=== PATIENT | male | born 1960 | race American Indian/Alaskan Native ===

== ENCOUNTER 2021-06-11 13:39 | Emergency (ER) | payer BC ==
--- NOTE | 2021-06-11 15:29 | RAD REPORT ---
EXAM DESCRIPTION: CT - Stone Protocol - 06/11/2021 3:21 pm CLINICAL HISTORY: Flank pain. back and testicular pain COMPARISON: No comparisons TECHNIQUE: Axial images were obtained without oral or IV contrast. Lack of contrast limits solid org an and vascular assessment. The [id number] spans the entirety of the system partially obscuring uppermost abdomen and lung bases. Coronal reformatted images were obtained and reviewed. All CT scans are performed using dose optimization technique as appropriate and may include automated exposure control or mA/KV adjustment according to patient size. FINDINGS: The lower lung evangelista are clear. Imaged portions of the liver and spleen show no suspicious findings on non-contrast imaging. The panc reas and adrenal glands are normal. No pathologic lymphadenopathy in the abdomen or pelvis. No urinary tract stones or obstructive uropathy. No bowel obstruction, free air, intra-abdominal free fluid or abscess. Normal appendix noted. Small b ilateral fat containing inguinal hernias. Significant edematous appearance to the prostate gland is present with mild inflammation surrounding the prostate. No significant bony abnormality. IMPRESSION: Prostatitis is suspected.
[2021-06-11 15:48] LABS: Urine Blood 3+ (Negative); Urine Glucose Negative (Negative); Urine Protein 3+ (Negative); Urine Specific Gravity >=1.030 (1.005-1.030)
--- NOTE | 2021-06-11 15:56 | RAD REPORT ---
EXAM DESCRIPTION: US - Scrotum Testicles - 06/11/2021 3:20 pm CLINICAL HISTORY: right testicular pain and swelling Pain and swelling COMPARISON: No comparisons FINDINGS: The right testicle 3.9 x 2.3 x 2.4 cm. No intratesticular masses or evidence of testicular torsion. The left testicle 4.5 x 3.0 x 2.2 cm. No intratesticular masses or evidence of testicular torsion. The right epididymis is enlarged and demonstrates increased blood flow. Mild fluid is present in both scrotal sacs. The scrotal in tears soft tissues are thickened. IMPRESSION: Significant right-sided epididymitis suspected.
[2021-06-11 16:12] LABS: Hematocrit 33.7 % (39.6-49.0); RBC Red Blood Cell Count 3.92 M/uL (4.33-5.43)
[2021-06-11 16:13] LABS: Absolute Lymphocytes (CBC) 0.8 K/uL (0.7-4.9); Basophils % 0.1 % (0-1.3); Lymphocytes % 4.9 % (15.3-44.8); MPV 7.2 fL (7.6-11.3)
[2021-06-11] MEDS ORDERED: CEFTRIAXONE 1000 MG/VIAL ONE (16:13)
[2021-06-11 16:30] LABS: Urine Bacteria 20-50 /HPF (NONE SEEN); Urine Mucus 4+ /HPF (NONE SEEN); Urine RBC 20-50 /HPF (NONE SEEN); Urine Sperm PRESENT (NONE SEEN)
[2021-06-11 16:43] LABS: Potassium 3.9 mmol/L (3.5-5.1)
--- NOTE | 2021-06-11 16:50 | ER ---
Nurse's Notes [facility] Name: Kathleen Benites Age: 61 yrs Sex: Male : 1960 Arrival Date: 06/11/2021 Time: 13:48 Bed 11 [facility] MD: Diagnosis: Epididymitis;Acute prostatitis Presentation: 06/11 14:07 Chief complaint: Patient states: Dysuria, R groin pain that radiates into R testes for ll1 2 days. N/V started today. Coronavirus screen: Vaccine status: Patient reports being unvaccinated. Client denies travel out of the [place] in the last 14 days. At this time, the client does not indicate any symptoms associated with coronavirus-19. Ebola Screen: Patient denies travel to an Ebola-affected area in the 21 days before illness onset. Initial Sepsis Screen: Does the patient meet any 2 criteria? No. Patient's initial sepsis screen is negative. Does the patient have a suspected source of infection? Yes: Dysuria/Frequency/Urgency/UTI. Risk Assessment: Do you want to hurt yourself or someone else? Patient reports no desire to harm self or others. Onset of symptoms was June 10, 2021. 14:07 Method Of Arrival: Ambulatory ll1 14:07 Acuity: DEINSA 3 ll1 Historical: - Allergies: 14:08 No Known Allergies; ll1 - PMHx: 14:08 None; ll1 - PSHx: 14:08 lasik eye SX; ll1 - Immunization history:: Client reports having NOT received the Covid vaccine. - Social history:: Smoking status: Patient denies any tobacco usage or history of. - Family history:: not pertinent. - Hospitalizations: : No recent hospitalization is reported. Screenin:22 Abuse screen: Denies threats or abuse. Nutritional screening: No deficits noted. vg1 Tuberculosis screening: No symptoms or risk factors identified. Fall Risk No fall in past 12 months (0 pts). No secondary diagnosis (0 pts). IV access (20 points). Ambulatory Aid- None/Bed Rest/Nurse Assist (0 pts). Gait- Normal/Bed Rest/Wheelchair (0 pts) Mental Status- Oriented to own ability (0 pts). Total Sy Fall Scale indicates No Risk (0-24 pts). Assessment: 14:20 General: Appears in no apparent distress. uncomfortable, Behavior is calm, cooperative. vg1 Pain: Complains of pain in lower back and Right testicle Pain currently is 8 out of 10 on a pain scale. Quality of pain is described as tender. Neuro: Level of Consciousness is awake, alert, obeys commands, Oriented to person, place, time, situation. Cardiovascular: Patient's skin is warm and dry. Respiratory: Airway is patent Respiratory effort is even, unlabored. GI: Reports nausea, vomiting. : Reports pain in lower back testicle. EENT: No signs and/or symptoms were reported regarding the EENT system. Derm: Skin is intact, is healthy with good turgor. Musculoskeletal: Circulation, motion, and sensation intact. 16:00 Reassessment: Patient appears in no apparent distress at this time. No changes from vg1 previously documented assessment. Patient and/or family updated on plan of care and expected duration. Pain level reassessed. Patient is alert, oriented x 3, equal unlabored respirations, skin warm/dry/pink. 17:11 Reassessment: Patient appears in no apparent distress at this time. Patient and/or vg1 family updated on plan of care and expected duration. Pain level reassessed. Patient is alert, oriented x 3, equal unlabored respirations, skin warm/dry/pink. Patient states feeling better. Vital Signs: 14:07 BP 135 / 90; Pulse 75; Resp 18; Temp 97.0; Pulse Ox 99% ; Weight 80.29 kg; Height 5 ft. ll1 8 in. (172.72 cm); Pain 8/10; 15:43 BP 136 / 80; Pulse 78; Resp 16; Pulse Ox 100% ; vg1 17:10 BP 127 / 82; Pulse 74; Resp 16; Pulse Ox 100% ; vg1 14:07 Body Mass Index 26.91 (80.29 kg, 172.72 cm) ll1 ED Course: 13:48 Patient arrived in ED. as 14:07 Arm band placed on. ll1 14:08 Triage completed. ll1 14:11 Dom Grider MD is Attending Physician. rn 14:11 Zulma Montelongo, RN is Primary Nurse. vg1 14:22 Patient has correct armband on for positive identification. Placed in gown. Bed in low vg1 position. Call light in reach. 15:20 US Scrotum Testicles In Process Unspecified. EDMS 15:21 CT Stone Protocol In Process Unspecified. EDMS 15:43 Initial lab(s) drawn, by me, sent to lab. Inserted saline lock: 20 gauge in left vg1 antecubital area, using aseptic technique. Blood collected. 16:49 Shawn Weber MD is Referral Physician. rn 17:10 No provider procedures requiring assistance completed. IV discontinued, intact, vg1 bleeding controlled, No redness/swelling at site. Pressure dressing applied. Administered Medications: 15:56 Drug: Rocephin (cefTRIAXone) 1 grams Route: IV; Rate: calculated rate; Site: left vg1 antecubital; 17:11 Follow up: Response: No adverse reaction; IV Status: Completed infusion vg1 17:05 Drug: LevaQUIN (levofloxacin) 750 mg Route: PO; vg1 17:09 Follow up: Response: Medication administered at discharge. vg1 Outcome: 16:50 Discharge ordered by MD. rn 17:10 Discharged to home ambulatory. vg1 17:10 Condition: stable 17:10 Discharge instructions given to patient, Instructed on discharge instructions, follow up and referral plans. medication usage, Demonstrated understanding of instructions, follow-up care, medications, Prescriptions given X 2. 17:11 Patient left the ED. vg1 Addendum: 06/14/2021 08:30 Addendum: Culture Results: Positive urine culture. No further action required. Bacteria s s sensitive to prescribed antibiotic. Signatures: Dispatcher [employer] Marlene Gagnon Roman, MD MD rn Smirch, Shelby, RN RN ss Garcia, Victoria, RN RN vg1 James Tam RN RN ll1
--- NOTE | 2021-06-11 16:50 | EDPHYS ---
Physician Documentation [facility] Name: Kathleen Benites Age: 61 yrs Sex: Male : 1960 Arrival Date: 06/11/2021 Time: 13:48 Bed 11 Private MD: ED Physician Dom Grider HPI: 06/11 15:39 This 61 yrs old Other Male presents to ER via Ambulatory with complaints of Right rn testicle pain. 15:39 The patient presents with scrotal pain, of the right side, with swelling. Onset: The rn symptoms/episode began/occurred 2 day(s) ago. Modifying factors: The symptoms are alleviated by nothing, the symptoms are aggravated by movement, pressure. Associated signs and symptoms: Pertinent positives: abdominal pain, nausea, Pertinent negatives: fever, hematuria. Severity of symptoms: At their worst the symptoms were moderate, in the emergency department the symptoms are unchanged. The patient has not experienced similar symptoms in the past. The patient has not recently seen a physician. Patient reports 2 days of right testicular pain, no trauma or injury. Reports right groin and the right lower abdominal pain that comes and goes. No fever. Reports more comfortable when sitting and laying back. Reports right testicular tenderness.. Historical: - Allergies: 14:08 No Known Allergies; ll1 - PMHx: 14:08 None; ll1 - PSHx: 14:08 lasik eye SX; ll1 - Immunization history:: Client reports having NOT received the Covid vaccine. - Social history:: Smoking status: Patient denies any tobacco usage or history of. - Family history:: not pertinent. - Hospitalizations: : No recent hospitalization is reported. ROS: 15:39 Constitutional: Negative for fever, chills, and weight loss, Eyes: Negative for injury, rn pain, redness, and discharge, Neck: Negative for injury, pain, and swelling, Cardiovascular: Negative for chest pain, palpitations, and edema, Respiratory: Negative for shortness of breath, cough, wheezing, and pleuritic chest pain, Abdomen/GI: Positive for right lower quadrant abdominal pain and pelvic pain Back: Positive for lower back pain : Positive for right testicular pain and swelling MS/Extremity: Negative for injury and deformity, Skin: Negative for injury, rash, and discoloration, Neuro: Negative for headache, weakness, numbness, tingling, and seizure. Exam: 15:39 Constitutional: This is a well developed, well nourished patient who is awake, alert, rn sitting in chair, reclined, appears uncomfortable Head/Face: Normocephalic, atraumatic. Cardiovascular: Regular rate and rhythm. No pulse deficits. Respiratory: No increased work of breathing, no retractions or nasal flaring. Abdomen/GI: Soft, non-tender Back: No costovertebral tenderness. Male : Mild tenderness right hemiscrotum, no masses, pain with elevation and palpation Skin: Warm, dry MS/ Extremity: Pulses equal, no cyanosis. Neurovascular intact. Full, normal range of motion. Equal circumference. Neuro: Awake and alert, GCS 15 Vital Signs: 14:07 BP 135 / 90; Pulse 75; Resp 18; Temp 97.0; Pulse Ox 99% ; Weight 80.29 kg; Height 5 ft. ll1 8 in. (172.72 cm); Pain 8/10; 15:43 BP 136 / 80; Pulse 78; Resp 16; Pulse Ox 100% ; vg1 17:10 BP 127 / 82; Pulse 74; Resp 16; Pulse Ox 100% ; vg1 14:07 Body Mass Index 26.91 (80.29 kg, 172.72 cm) ll1 MDM: 14:11 Patient medically screened. rn 16:46 Differential diagnosis: UTI, prostatitis, urethritis, epididymitis. Data reviewed: rn vital signs, nurses notes, lab test result(s), radiologic studies, CT scan, ultrasound, and as a result, I will discharge patient. Data interpreted: transitional studies instructor: rate is 78 beats/min, rhythm is normal sinus rhythm, regular, with no ectopy, Interpretation: normal rate, normal rhythm. Counseling: I had a detailed discussion with the patient and/or guardian regarding: the historical points, exam findings, and any diagnostic results supporting the discharge/admit diagnosis, lab results, radiology results, the need for outpatient follow up, to return to the emergency department if symptoms worsen or persist or if there are any questions or concerns that arise at home. Response to treatment: the patient's symptoms have mildly improved after treatment, and as a result, I will discharge patient. Special discussion: I discussed with the patient/guardian in detail that at this point there is no indication for admission to the hospital. It is understood, however, that if the symptoms persist or worsen the patient needs to return immediately for re-evaluation. Special discussion: Based on the history and exam findings, there is no indication for further emergent testing or inpatient evaluation. I discussed with the patient/guardian the need to see the primary care provider for further evaluation of the symptoms. I discussed with the patient/guardian the need to see the urologist for further evaluation of the symptoms. ED course: Patient clinically with signs of acute epididymitis given right testicular pain and symptoms of UTI. Vital signs stable. CT does not show pyelonephritis but possible mild prostatitis without abscess. Will DC home with antibiotics. Levaquin and Rocephin given here. Return precautions given and told needs to follow-up with urology. He has seen urology twice before.. 06/11 14:21 Order name: CBC with Diff rn 06/11 14:21 Order name: Basic Metabolic Panel 06/11 14:21 Order name: Urine Culture 06/11 14:21 Order name: Urine Microscopic Only; Complete Time: 16:46 06/11 14:22 Order name: CBC with Automated Diff EDSC 06/11 14:22 Order name: Basic Metabolic Panel; Complete Time: 16:46 EDMS 06/11 14:21 Order name: US Scrotum Testicles; Complete Time: 16:28 rn 06/11 14:21 Order name: CT Stone Protocol; Complete Time: 15:31 rn 06/11 14:21 Order name: IV Start; Complete Time: 15:42 rn 06/11 14:21 Order name: Urine Dipstick-Ancillary (obtain specimen); Complete Time: 15:53 rn 06/11 14:22 Order name: Urine Culture EDSC 06/11 15:47 Order name: Urine Dipstick-Ancillary; Complete Time: 16:28 EDMS Administered Medications: 15:56 Drug: Rocephin (cefTRIAXone) 1 grams Route: IV; Rate: calculated rate; Site: left vg1 antecubital; 17:11 Follow up: Response: No adverse reaction; IV Status: Completed infusion vg1 17:05 Drug: LevaQUIN (levofloxacin) 750 mg Route: PO; vg1 17:09 Follow up: Response: Medication administered at discharge. vg1 Disposition Summary: 06/11/21 16:50 Discharge Ordered Location: Home rn Problem: new rn Symptoms: have improved rn Condition: Stable rn Diagnosis - Epididymitis rn - Acute prostatitis rn Followup: rn - With: Shawn Weber MD - When: 5 - 6 days - Reason: Recheck today's complaints, Re-evaluation by your physician Discharge Instructions: - Discharge Summary Sheet rn - Epididymitis rn - Prostatitis rn Forms: - Medication Reconciliation Form rn - Thank You Letter rn - Antibiotic broomcorn seeder - Prescription Opioid Use rn Prescriptions: - cefpodoxime 100 mg Oral Tablet - take 2 tablets by ORAL route every 12 hours for 10 days take with food; 40 rn tablet; Refills: 0, Product Selection Permitted - levofloxacin 750 mg Oral Tablet - take 1 tablet by ORAL route once daily for 10 days; 10 tablet; Refills: 0, rn Product Selection Permitted Signatures: Dispatcher [employer] Dom Anderson MD MD rn Garcia, Victoria, RN RN vg1 James Tam RN RN ll1
[2021-06-11] MEDS ORDERED: levoFLOXacin 750 MG TAB ONE (17:20)
[2021-06-11 17:23] VITALS: TEMP 97
[2021-06-11 17:24] VITALS: O2SAT 100
[2021-06-11 17:25] VITALS: BP 127/82
[2021-06-11 18:59] LABS: Blood Morphology Comment NOT SEEN (NOT SEEN); Platelet Estimate INCR; White Blood Cell Scan OK (OK)
== END 2021-06-11 17:11 | disposition home or self-care (01) ==
LOC: ER 13:39
DX: N45.1 Epididymitis (principal); N41.0 Acute prostatitis
CPT/HCPCS: 36415; 74176; 76377; 76870; 80048; 81003; 81015; 85025; 87077; 87086; 87088; 87186; 96365; 99284

== ENCOUNTER 2024-08-18 01:52 | Emergency (ER) | payer BC ==
[2024-08-18] MEDS ORDERED: METOCLOPRAMIDE 10 MG/2mL INJ ONE (03:08)
[2024-08-18] MEDS ORDERED: NA CHLORIDE 0.9% 500 ML ONE (03:08)
[2024-08-18] MEDS ORDERED: DIPHENHYDRAMINE 50 MG/ML VIAL ONE (03:08)
[2024-08-18 03:12] LABS: Absolute Eosinophils 0.4 K/uL (0-0.5); Absolute Lymphocytes (CBC) 2.4 K/uL (0.7-4.9); Absolute Monocytes 0.5 K/uL (0.1-1.3); Absolute Neutrophil 3.9 K/uL (1.8-8.0); Basophils % 0.6 % (0-1.3); Eosinophils % 5.8 % (0-4.4); Hematocrit 39.5 % (39.6-49.0); Hemoglobin 13.7 g/dL (13.6-17.9); Lymphocytes % 33.3 % (15.3-44.8); MCH 30.3 pg (27.0-35.0); MCHC 34.7 g/dL (32.0-36.0); MCV 87.2 fL (80-100); MPV 6.8 fL (7.6-11.3); Neutrophils % 53.3 % (41.7-73.7); Platelets 367 thou/uL (152-406); RBC Red Blood Cell Count 4.53 M/uL (4.33-5.43); Red Cell Distribution Width 13.5 % (12.1-15.2)
[2024-08-18 03:30] LABS: Anion Gap 9.4 mEq/L (5.0-15.0); Potassium 4.4 mEq/L (3.5-5.1); Troponin High Sensitivity 7.2 pg/mL (<58.9)
--- NOTE | 2024-08-18 05:57 | ER ---
Nurse's Notes [facility] Name: Kathleen Benites Age: 64 yrs Sex: Male : 1960 Arrival Date: 08/18/2024 Time: 01:52 Bed 5 Private MD: Diagnosis: Other peripheral vertigo Presentation: 08/18 02:12 Chief complaint: Patient states: feeling dizzy with a heaviness in my head, when I lay vc1 down the room spins and I have been nauseous off and on. Coronavirus screen: Client denies travel out of the [place] in the last 14 days. At this time, the client does not indicate any symptoms associated with coronavirus-19. Ebola Screen: Patient negative for fever greater than or equal to 101.5 degrees Fahrenheit, and additional compatible Ebola Virus Disease symptoms Patient denies exposure to infectious person. Patient denies travel to an Ebola-affected area in the 21 days before illness onset. No symptoms or risks identified at this time. Initial Sepsis Screen: Does the patient meet any 2 criteria? No. Patient's initial sepsis screen is negative. Does the patient have a suspected source of infection? No. Patient's initial sepsis screen is negative. Risk Assessment: Do you want to hurt yourself or someone else? Patient reports no desire to harm self or others. Onset of symptoms was August 17, 2024. Care prior to arrival: Medication(s) given: Motrin, 200 mg. 02:12 Method Of Arrival: Ambulatory vc1 02:12 Acuity: DENISA 3 vc1 Triage Assessment: 02:16 General: Appears in no apparent distress. comfortable, well groomed, well developed, vc1 well nourished, Behavior is calm, cooperative, appropriate for age. Pain: Denies pain. EENT: No deficits noted. No signs and/or symptoms were reported regarding the EENT system. Neuro: Level of Consciousness is awake, alert, obeys commands, Oriented to person, place, time, situation, Appropriate for age Reports dizziness, "heaviness in head, but doesn't hurt". Cardiovascular: Reports lightheadedness, nausea, Capillary refill < 3 seconds Patient's skin is warm and dry. Respiratory: Airway is patent Respiratory effort is even, unlabored, Respiratory pattern is regular, symmetrical. GI: Reports nausea, Patient currently denies vomiting. : No deficits noted. No signs and/or symptoms were reported regarding the genitourinary system. Derm: Skin is intact, is healthy with good turgor, Skin is dry, Skin is normal, Skin temperature is warm. Musculoskeletal: Circulation, motion, and sensation intact. Range of motion: intact in all extremities. Historical: - Allergies: 02:14 No Known Allergies; vc1 - Home Meds: 02:14 cholesterol medicine 5 mg [Active]; vc1 - PMHx: 02:14 High Cholesterol; vc1 - PSHx: 02:14 Lasik eye sx; vc1 - Immunization history:: Client reports having NOT received the Covid vaccine. Flu vaccine is not up to date. - Infectious Disease History:: Denies. - Social history:: Smoking status: Patient denies any tobacco usage or history of. Screenin:16 [facility] ED Fall Risk Assessment (Adult) History of falling in the last 3 months, vc1 including since admission No falls in past 3 months (0 pts) Confusion or Disorientation No (0 pts) Intoxicated or Sedated No (0 pts) Impaired Gait No (0 pts) Mobility Assist Device Used No (0 pt) Altered Elimination No (0 pt) Score/Fall Risk Level 0 - 2 = Low Risk Oriented to surroundings, Maintained a safe environment, Educated pt \\T\\ family on fall prevention, incl call for assistance when getting out of bed. Abuse screen: Denies threats or abuse. Nutritional screening: No deficits noted. Tuberculosis screening: No symptoms or risk factors identified. Assessment: 02:31 Reassessment: Patient appears in no apparent distress at this time. Patient and/or bm8 family updated on plan of care and expected duration. Pain level reassessed. Patient is alert, oriented x 3, equal unlabored respirations, skin warm/dry/pink. General: Appears in no apparent distress. comfortable, Behavior is calm, cooperative, appropriate for age. Pain: Denies pain. Neuro: Level of Consciousness is awake, alert, obeys commands, Oriented to person, place, time, situation, Appropriate for age Reports dizziness, every time he lays down, feels like room is spinning. Cardiovascular: Reports lightheadedness, Denies chest pain, Heart tones S1 S2 present Capillary refill < 3 seconds in bilateral fingers Patient's skin is warm and dry. Rhythm is sinus rhythm. Respiratory: Airway is patent Trachea midline Respiratory effort is even, unlabored, Respiratory pattern is regular, symmetrical, Breath sounds are clear bilaterally. GI: Reports nausea. : No signs and/or symptoms were reported regarding the genitourinary system. EENT: No signs and/or symptoms were reported regarding the EENT system. Derm: No signs and/or symptoms reported regarding the dermatologic system. Musculoskeletal: No signs and/or symptoms reported regarding the musculoskeletal system. 04:17 Reassessment: Patient appears in no apparent distress at this time. Patient and/or bm8 family updated on plan of care and expected duration. Pain level reassessed. Patient is alert, oriented x 3, equal unlabored respirations, skin warm/dry/pink. pt is resting with eyes closed breathing is even unlabored with symmetrical rise and fall of chest, denies pain. nausea and dizziness significantly improved. currently awaiting CT results. IV infiltrated post Ct. GI: Patient currently denies nausea, pain, vomiting. 05:21 Reassessment: Patient appears in no apparent distress at this time. No changes from bm8 previously documented assessment. Patient and/or family updated on plan of care and expected duration. Pain level reassessed. Patient is alert, oriented x 3, equal unlabored respirations, skin warm/dry/pink. pt ambulated to restroom under own power. 06:06 Visitor restriction implemented due to in-person visitations may lead to the bm8 transmission of an infectious agent. Restricted visitation is valid for not more than 5 days unless renewed by the attending provider. Reassessment: Patient appears in no apparent distress at this time. No changes from previously documented assessment. Patient and/or family updated on plan of care and expected duration. Pain level reassessed. Patient is alert, oriented x 3, equal unlabored respirations, skin warm/dry/pink. Patient denies pain at this time. Patient states feeling better. Patient states symptoms have improved. Vital Signs: 02:12 BP 147 / 91; Pulse 58; Resp 15; Temp 97.8; Pulse Ox 98% ; Weight 83.91 kg; Height 5 ft. vc1 8 in. ; 02:31 BP 147 / 91; Pulse 67; Resp 18; Temp 97.8; Pulse Ox 100% ; Pain 0/10; bm8 03:17 BP 135 / 95; Pulse 60; Resp 19; Temp 97.8; Pulse Ox 98% ; Pain 0/10; bm8 04:19 BP 133 / 83; Pulse 62; Resp 18; Temp 97.8; Pulse Ox 96% ; Pain 0/10; bm8 05:21 BP 135 / 81; Pulse 63; Resp 18; Temp 97.8; Pulse Ox 95% ; Pain 0/10; bm8 06:06 BP 123 / 77; Pulse 61; Resp 20; Temp 97.8; Pulse Ox 100% ; Pain 0/10; bm8 02:12 Body Mass Index 28.13 (83.91 kg, 172.72 cm) vc1 02:31 Pain Scale: Adult bm8 03:17 Pain Scale: Adult bm8 04:19 Pain Scale: Adult bm8 05:21 Pain Scale: Adult bm8 06:06 Pain Scale: Adult bm8 Sam Coma Score: 02:31 Eye Response: spontaneous(4). Motor Response: obeys commands(6). Verbal Response: bm8 oriented(5). Total: 15. 03:17 Eye Response: spontaneous(4). Motor Response: obeys commands(6). Verbal Response: bm8 oriented(5). Total: 15. 05:21 Eye Response: spontaneous(4). Motor Response: obeys commands(6). Verbal Response: bm8 oriented(5). Total: 15. 06:06 Eye Response: spontaneous(4). Motor Response: obeys commands(6). Verbal Response: bm8 oriented(5). Total: 15. ED Course: 01:58 Patient arrived in ED. gm2 02:05 Bubba Mae MD is Attending Physician. ec2 02:14 Triage completed. vc1 02:15 Arm band placed on right wrist. vc1 02:16 Patient has correct armband on for positive identification. Bed in low position. Call vc1 light in reach. Pulse ox on. NIBP on. 02:30 Enrique Ragsdale, CHIQUITA is Primary Nurse. bm8 02:31 No provider procedures requiring assistance completed. EKG done, by ED staff, reviewed bm8 by Bubba Mae MD. Patient maintains SpO2 saturation greater than 95% on room air. 03:16 Initial lab(s) drawn, by me, sent to lab. Inserted saline lock: 20 gauge in right bm8 antecubital area, using aseptic technique. Blood collected. Flushed with 10 mL NS. 03:56 CT Head Angio In Process Unspecified. EDMS 03:57 CT Neck Angio In Process Unspecified. EDMS 03:57 CT Head Brain wo Cont In Process Unspecified. EDMS 04:18 IV discontinued, intact, bleeding controlled, No redness/swelling at site. Pressure bm8 dressing applied. 05:57 Yonathan Ayoub MD is Referral Physician. ec2 06:06 Provided Education on: post er care. bm8 Administered Medications: 03:15 Drug: diphenhydrAMINE IVP 25 mg IVP once Route: IVP; Site: right antecubital; bm8 03:49 Follow up: Response: No adverse reaction al5 03:16 Drug: NS 0.9% IV 500 ml 500 ml IV at 1 bolus once; to be given as a bolus over 30 bm8 minutes Volume: 500 ml; Route: IV; Rate: 1 bolus; Site: right antecubital; 03:50 Follow up: Response: No adverse reaction; IV Status: Completed infusion; IV Intake: al5 500ml 03:16 Drug: metoCLOPramide IVP 10 mg IVP once; over 1 to 2 minutes Route: IVP; Site: right bm8 antecubital; 03:49 Follow up: Response: No adverse reaction al5 Medication: 02:16 VIS not applicable for this client. vc1 Intake: 03:50 IV: 500ml; Total: 500ml. al5 Outcome: 05:57 Discharge ordered by MD. ec2 06:06 Discharged to home ambulatory, bm8 06:06 Condition: stable 06:06 Discharge instructions given to patient, family, Instructed on discharge instructions, follow up and referral plans. no drinking with medication, no driving heavy equipment, medication usage, safety practices, Demonstrated understanding of instructions, follow-up care, medications, Prescriptions given X 1, 06:12 Patient left the ED. bm8 Signatures: Dispatcher [employer] EDMelvi Jeffers RN RN vc1 Bubba Mae MD MD ec2 Juany Del Rosario Enrique Caballero RN RN bm8 Latha Odonnell RN RN al5 Corrections: (The following items were deleted from the chart) 03:48 02:12 Chief complaint: Patient states: feeling dizzy with a heaviness in my head, when vc1 I lay down the room spoons and I have been nauseous off and on vc1
--- NOTE | 2024-08-18 05:57 | EDPHYS ---
Physician Documentation [facility] Name: Kathleen Benites Age: 64 yrs Sex: Male : 1960 Arrival Date: 08/18/2024 Time: 01:52 Bed 5 Private MD: ED Physician Bubba Mae HPI: 08/18 02:27 This 64 yrs old Male presents to ER via Ambulatory with complaints of Dizziness, ec2 Nausea/Vomiting. 02:27 Patient arrives today for evaluation of dizziness along with nausea and vomiting onset ec2 of 2 days. Patient reports that he has dizziness which she describes as vertigo with worsening of positional movements. No falls injuries or trauma recently. Reports history of hyperlipidemia. Patient reports that he is also having some head discomfort as well described as pressure.. Historical: - Allergies: 02:14 No Known Allergies; vc1 - Home Meds: 02:14 cholesterol medicine 5 mg [Active]; vc1 - PMHx: 02:14 High Cholesterol; vc1 - PSHx: 02:14 Lasik eye sx; vc1 - Immunization history:: Client reports having NOT received the Covid vaccine. Flu vaccine is not up to date. - Infectious Disease History:: Denies. - Social history:: Smoking status: Patient denies any tobacco usage or history of. ROS: 02:27 Constitutional: as per hpi ec2 Exam: 02:27 Constitutional: GEN: NAD Head: atraumatic Eyes: EOMI Ears: External ears are ec2 normal. CV: regular rate LUNGS: no respiratory distress ABD: non-distended SKIN: no evidence of rashes MSK: no evidence of trauma. Neuro: Cranial nerves II through XII intact, strength intact all 4 extremities. No pronator drift, normal [id number]. Vital Signs: 02:12 BP 147 / 91; Pulse 58; Resp 15; Temp 97.8; Pulse Ox 98% ; Weight 83.91 kg; Height 5 ft. vc1 8 in. ; 02:31 BP 147 / 91; Pulse 67; Resp 18; Temp 97.8; Pulse Ox 100% ; Pain 0/10; bm8 03:17 BP 135 / 95; Pulse 60; Resp 19; Temp 97.8; Pulse Ox 98% ; Pain 0/10; bm8 04:19 BP 133 / 83; Pulse 62; Resp 18; Temp 97.8; Pulse Ox 96% ; Pain 0/10; bm8 05:21 BP 135 / 81; Pulse 63; Resp 18; Temp 97.8; Pulse Ox 95% ; Pain 0/10; bm8 06:06 BP 123 / 77; Pulse 61; Resp 20; Temp 97.8; Pulse Ox 100% ; Pain 0/10; bm8 02:12 Body Mass Index 28.13 (83.91 kg, 172.72 cm) vc1 02:31 Pain Scale: Adult bm8 03:17 Pain Scale: Adult bm8 04:19 Pain Scale: Adult bm8 05:21 Pain Scale: Adult bm8 06:06 Pain Scale: Adult bm8 Sam Coma Score: 02:31 Eye Response: spontaneous(4). Motor Response: obeys commands(6). Verbal Response: bm8 oriented(5). Total: 15. 03:17 Eye Response: spontaneous(4). Motor Response: obeys commands(6). Verbal Response: bm8 oriented(5). Total: 15. 05:21 Eye Response: spontaneous(4). Motor Response: obeys commands(6). Verbal Response: bm8 oriented(5). Total: 15. 06:06 Eye Response: spontaneous(4). Motor Response: obeys commands(6). Verbal Response: bm8 oriented(5). Total: 15. MDM: 02:25 Medical Screening Exam initiated ec2 02:28 Data reviewed: vital signs, nurses notes. ED course: Patient arrives today for ec2 dizziness and nausea and vomiting along with headache. Examination is revealing for neuro intact individuals hemodynamically stable with a reassuring examination. Will obtain lab work, CT scan of the head. Differential includes arrhythmia, electrolyte disturbances, anemia, ACS, intracranial mass. EKG obtained, independently reviewed and interpreted by me, shows normal sinus rhythm, rate of 60, no acute ST segment elevations, intervals are nonactionable.. 04:57 ED course: On reassessment patient is well-appearing in no acute distress, ambulatory ec2 without issue with a stable gait. Pending CT imaging.. 08/18 02:26 Order name: Basic Metabolic Panel; Complete Time: 03:31 ec2 08/18 02:26 Order name: CBC with Diff; Complete Time: 03:31 ec2 08/18 02:26 Order name: Troponin HS; Complete Time: 03:31 ec2 08/18 02:26 Order name: CT Head Angio ec2 08/18 02:26 Order name: CT Neck Angio ec2 08/18 02:26 Order name: CT Head Brain wo Cont ec2 08/18 02:26 Order name: Cardiac monitoring; Complete Time: 02:33 ec2 08/18 02:26 Order name: EKG - Nurse/Tech; Complete Time: 02:27 ec2 08/18 02:26 Order name: IV Saline Lock; Complete Time: 03:16 ec2 08/18 02:26 Order name: Labs collected and sent; Complete Time: 03:16 ec2 08/18 02:26 Order name: O2 Per Protocol; Complete Time: 03:16 ec2 08/18 02:26 Order name: O2 Sat Monitoring; Complete Time: 03:16 ec2 Administered Medications: 03:15 Drug: diphenhydrAMINE IVP 25 mg IVP once Route: IVP; Site: right antecubital; bm8 03:49 Follow up: Response: No adverse reaction al5 03:16 Drug: NS 0.9% IV 500 ml 500 ml IV at 1 bolus once; to be given as a bolus over 30 bm8 minutes Volume: 500 ml; Route: IV; Rate: 1 bolus; Site: right antecubital; 03:50 Follow up: Response: No adverse reaction; IV Status: Completed infusion; IV Intake: al5 500ml 03:16 Drug: metoCLOPramide IVP 10 mg IVP once; over 1 to 2 minutes Route: IVP; Site: right bm8 antecubital; 03:49 Follow up: Response: No adverse reaction al5 Disposition Summary: 08/18/24 05:57 Discharge Ordered Notes: Location: Home ec2 Condition: Stable ec2 Diagnosis - Other peripheral vertigo ec2 Followup: ec2 - With: Private Physician - When: - Reason: Re-evaluation by your physician Followup: ec2 - With: Yonathan Ayoub MD - When: - Reason: Recheck today's complaints Discharge Instructions: - Discharge Summary Sheet ec2 - Vertigo, [id number] ec2 Forms: - Medication Reconciliation Form ec2 - Antibiotic Education ec2 - Prescription Opioid Use ec2 - Patient Portal Instructions ec2 - Leadership Thank You Letter ec2 Prescriptions: - Meclizine 25 mg Oral Tablet - take 1 tablet ORAL route every 8 hours As needed; 30 tablet; Refills: 0, ec2 Product Selection Permitted Signatures: Dispatcher [employer] EDMS Melvi uQinonez RN RN vc1 Bubba Mae MD MD ec2 Enrique Ragsdale RN RN bm8 Latha Odonnell RN al5 Corrections: (The following items were deleted from the chart) 02: 02:26 BASIC METABOLIC PANEL+C.LAB.BRZ ordered. EDMS EDMS 02: 02:26 CBC+H.LAB.BRZ ordered. EDMS EDMS 02: 02:26 Troponin High Sensitivity+C.LAB.BRZ ordered. EDMS EDMS 02: 02:26 Head Angio+CT.RAD.BRZ ordered. EDMS EDMS 02: 02:26 Neck Angio+CT.RAD.BRZ ordered. EDMS EDMS 02: 02:26 Head Brain Wo Cont+CT.RAD.BRZ ordered. EDMS EDMS 02:28 02:27 Constitutional: GEN: NAD Head: atraumatic Eyes: EOMI Ears: External ears are ec2 normal. CV: regular rate LUNGS: no respiratory distress ABD: non-distended SKIN: no evidence of rashes MSK: no evidence of trauma. Neuro: Cranial nerves II through XII intact, strength intact all 4 extremities. ec2
--- NOTE | 2024-08-18 06:16 | RAD REPORT ---
ADDENDUM #1 The findings were communicated with Dr. Bubba Mae at 08/18/2024 5:55 AM BEEF [employer]IBBER. Electronically signed by: Nancy Barnett MD 08/18/2024 06:07 AM BEE[facility] RP End of Addendum CT HEAD WITHOUT IV CONTRAST, CT HEAD ANGIOGRAPHY WITH IV CONTRAST, CT NECK ANGIOGRAPHY WITH IV CONTRA ST CLINICAL INDICATION: Dizziness COMPARISON: Head CT from earlier today. TECHNIQUE: CT HEAD: CT images of the head were obtained without contrast. CTA HEAD/NECK: Following intravenous contrast administration, CT images were obtained through the hea d and neck during the arterial phase. Multiplanar 3D/MIP and MPR reconstructions were provided. Dose lowering technique(s) such as automated exposure control, iterative reconstruction, mA and/or KV adjustment for patient's size was utilized for this examination. FINDINGS: CT HEAD: There is no acute intracranial hemorrhage, acute territorial infarct, mass effect, midline shift or e xtra-axial collection. Ventricles are normal in size for patient's age. No acute calvarial fracture. Status post bilateral antrectomies. Mild mucosal thickening bilateral maxillary sinuses, partial opac ification of ethmoid air cells and frontoethmoid recess. Paranasal sinuses are well aerated. Mastoid air cells and middle ear cavities are clear. Orbits are unremarkable. CTA HEAD: POSTERIOR CIRCULATION: Vertebral artery dominance: Left sided Right vertebral artery: No significant stenosis. No aneurysm. Left vertebral artery: No significant stenosis. No aneurysm. Basilar artery: No significant stenosis. No aneurysm. Posterior cerebral arteries: No significant stenosis. No aneurysm. ANTERIOR CIRCULATION: Right ICA: No significant stenosis. No aneurysm. Right MCA: No significant stenosis. No aneurysm. Right WISAM: No significant stenosis. No aneurysm. Left ICA: No significant stenosis. No aneurysm. Left MCA: No significant stenosis. No aneurysm. Left WISAM: No significant stenosis. No aneurysm. CTA NECK: Aortic arch: Left aortic arch with classic three-vessel branching pattern. No aneurysm or dissection. Vertebral arteries: No aneurysm or dissection. Right CCA: No hemodynamically significant stenosis. No aneurysm or dissection. Right ICA: No hemodynamically significant stenosis. No aneurysm or dissection. Right ECA: No aneurysm or dissection. Left CCA: No hemodynamically significant stenosis. No aneurysm or dissection. Left ICA: No hemodynamically significant stenosis. No aneurysm or dissection. Left ECA: No aneurysm or dissection. Measurement of carotid stenosis is based on criteria described in the [place] Symptomatic [place] tid Endarterectomy Trial (NASCET). NASCET criteria for estimating stenosis compares the normal distal ICA diameter with the standard proximal ICA diameter. Lung apices: Clear. Bones: No acute or destructive osseous lesion. Soft tissues: Unremarkable. Other: None. IMPRESSION: 1. No acute intracranial abnormality. 2. Negative CTA of the head and neck. 3. Paranasal sinus disease. Electronically signed by: Nancy Barnett MD 08/18/2024 05:51 AM [facility] Due to temporary technical issues with the PACS/[employer] reporting system, reports are being laina d by the in-house radiologist without review as a courtesy to ensure prompt reporting the interpreting radiologist is fully responsible for the content of the report. Transcribed Date/Time: 08/18/2024 6:16 AM
--- NOTE | 2024-08-18 06:17 | RAD REPORT ---
ADDENDUM #1 The findings were communicated with Dr. Bubba Mae at 08/18/2024 5:55 AM CENTRAL SUPPLY ASSISTANT. Electronically signed by: Nancy Barnett MD 08/18/2024 06:07 AM CENTRAL SUPPLY ASSISTANT RP End of Addendum CT HEAD WITHOUT IV CONTRAST, CT HEAD ANGIOGRAPHY WITH IV CONTRAST, CT NECK ANGIOGRAPHY WITH IV CONTRA ST CLINICAL INDICATION: Dizziness COMPARISON: Head CT from earlier today. TECHNIQUE: CT HEAD: CT images of the head were obtained without contrast. CTA HEAD/NECK: Following intravenous contrast administration, CT images were obtained through the hea d and neck during the arterial phase. Multiplanar 3D/MIP and MPR reconstructions were provided. Dose lowering technique(s) such as automated exposure control, iterative reconstruction, mA and/or KV adjustment for patient's size was utilized for this examination. FINDINGS: CT HEAD: There is no acute intracranial hemorrhage, acute territorial infarct, mass effect, midline shift or e xtra-axial collection. Ventricles are normal in size for patient's age. No acute calvarial fracture. Status post bilateral antrectomies. Mild mucosal thickening bilateral maxillary sinuses, partial opac ification of ethmoid air cells and frontoethmoid recess. Paranasal sinuses are well aerated. Mastoid air cells and middle ear cavities are clear. Orbits are unremarkable. CTA HEAD: POSTERIOR CIRCULATION: Vertebral artery dominance: Left sided Right vertebral artery: No significant stenosis. No aneurysm. Left vertebral artery: No significant stenosis. No aneurysm. Basilar artery: No significant stenosis. No aneurysm. Posterior cerebral arteries: No significant stenosis. No aneurysm. ANTERIOR CIRCULATION: Right ICA: No significant stenosis. No aneurysm. Right MCA: No significant stenosis. No aneurysm. Right WISAM: No significant stenosis. No aneurysm. Left ICA: No significant stenosis. No aneurysm. Left MCA: No significant stenosis. No aneurysm. Left WISAM: No significant stenosis. No aneurysm. CTA NECK: Aortic arch: Left aortic arch with classic three-vessel branching pattern. No aneurysm or dissection. Vertebral arteries: No aneurysm or dissection. Right CCA: No hemodynamically significant stenosis. No aneurysm or dissection. Right ICA: No hemodynamically significant stenosis. No aneurysm or dissection. Right ECA: No aneurysm or dissection. Left CCA: No hemodynamically significant stenosis. No aneurysm or dissection. Left ICA: No hemodynamically significant stenosis. No aneurysm or dissection. Left ECA: No aneurysm or dissection. Measurement of carotid stenosis is based on criteria described in the [place] Symptomatic [place] tid Endarterectomy Trial (NASCET). NASCET criteria for estimating stenosis compares the normal distal ICA diameter with the standard proximal ICA diameter. Lung apices: Clear. Bones: No acute or destructive osseous lesion. Soft tissues: Unremarkable. Other: None. IMPRESSION: 1. No acute intracranial abnormality. 2. Negative CTA of the head and neck. 3. Paranasal sinus disease. Electronically signed by: Nancy Barnett MD 08/18/2024 05:51 AM [facility] Due to temporary technical issues with the PACS/[employer] reporting system, reports are being laina d by the in-house radiologist without review as a courtesy to ensure prompt reporting the interpreting radiologist is fully responsible for the content of the report. Transcribed Date/Time: 08/18/2024 6:16 AM
--- NOTE | 2024-08-18 06:17 | RAD REPORT ---
ADDENDUM #1 The findings were communicated with Dr. Bubba Mae at 08/18/2024 5:55 AM [facility]. Electronically signed by: Nancy Barnett MD 08/18/2024 06:07 AM [facility] RP End of Addendum CT HEAD WITHOUT IV CONTRAST, CT HEAD ANGIOGRAPHY WITH IV CONTRAST, CT NECK ANGIOGRAPHY WITH IV CONTRA ST CLINICAL INDICATION: Dizziness COMPARISON: Head CT from earlier today. TECHNIQUE: CT HEAD: CT images of the head were obtained without contrast. CTA HEAD/NECK: Following intravenous contrast administration, CT images were obtained through the hea d and neck during the arterial phase. Multiplanar 3D/MIP and MPR reconstructions were provided. Dose lowering technique(s) such as automated exposure control, iterative reconstruction, mA and/or KV adjustment for patient's size was utilized for this examination. FINDINGS: CT HEAD: There is no acute intracranial hemorrhage, acute territorial infarct, mass effect, midline shift or e xtra-axial collection. Ventricles are normal in size for patient's age. No acute calvarial fracture. Status post bilateral antrectomies. Mild mucosal thickening bilateral maxillary sinuses, partial opac ification of ethmoid air cells and frontoethmoid recess. Paranasal sinuses are well aerated. Mastoid air cells and middle ear cavities are clear. Orbits are unremarkable. CTA HEAD: POSTERIOR CIRCULATION: Vertebral artery dominance: Left sided Right vertebral artery: No significant stenosis. No aneurysm. Left vertebral artery: No significant stenosis. No aneurysm. Basilar artery: No significant stenosis. No aneurysm. Posterior cerebral arteries: No significant stenosis. No aneurysm. ANTERIOR CIRCULATION: Right ICA: No significant stenosis. No aneurysm. Right MCA: No significant stenosis. No aneurysm. Right WISAM: No significant stenosis. No aneurysm. Left ICA: No significant stenosis. No aneurysm. Left MCA: No significant stenosis. No aneurysm. Left WISAM: No significant stenosis. No aneurysm. CTA NECK: Aortic arch: Left aortic arch with classic three-vessel branching pattern. No aneurysm or dissection. Vertebral arteries: No aneurysm or dissection. Right CCA: No hemodynamically significant stenosis. No aneurysm or dissection. Right ICA: No hemodynamically significant stenosis. No aneurysm or dissection. Right ECA: No aneurysm or dissection. Left CCA: No hemodynamically significant stenosis. No aneurysm or dissection. Left ICA: No hemodynamically significant stenosis. No aneurysm or dissection. Left ECA: No aneurysm or dissection. Measurement of carotid stenosis is based on criteria described in the [place] Symptomatic [employer] tid Endarterectomy Trial (NASCET). NASCET criteria for estimating stenosis compares the normal distal ICA diameter with the standard proximal ICA diameter. Lung apices: Clear. Bones: No acute or destructive osseous lesion. Soft tissues: Unremarkable. Other: None. IMPRESSION: 1. No acute intracranial abnormality. 2. Negative CTA of the head and neck. 3. Paranasal sinus disease. Electronically signed by: Nancy Barnett MD 08/18/2024 05:51 AM [facility] Due to temporary technical issues with the PACS/[employer] reporting system, reports are being laina d by the in-house radiologist without review as a courtesy to ensure prompt reporting the interpreting radiologist is fully responsible for the content of the report. Transcribed Date/Time: 08/18/2024 6:17 AM
[2024-08-18 10:12] VITALS: TEMP 97.8
[2024-08-18 10:33] VITALS: BP 123/77; O2SAT 100
== END 2024-08-18 06:12 | disposition home or self-care (01) ==
LOC: ER 01:52
DX: H81.399 Other peripheral vertigo, unspecified ear (principal); R11.2 Nausea with vomiting, unspecified; E78.00 Pure hypercholesterolemia, unspecified
CPT/HCPCS: 96361; 85025; 80048; 36415; 84484; 70450; 70496; 70498; 96375; 96374; 99284; Q9967; J2765; J1200; J7040